=== PATIENT | male | born 1975 | race Caucasian/White ===

== ENCOUNTER 2024-08-11 07:17 | Observation (INO) | payer SELFPAY ==
[2024-08-11] MEDS ORDERED: Naloxone HCl 0.4 mg/ml Vial ONE (10:48)
[2024-08-11 11:01] LABS: #Basophils 0.05 10x3/uL (0.0-0.2); #Eosinphils 0.12 10x3/uL (0.0-0.5); #Monocytes 0.56 10x3/uL (0.0-1.1); #Neutrophils 4.93 10x3/uL (1.5-8.4); %Basophils 0.7 % (0.0-2.0); %Eosinophils 1.6 % (0.0-6.0); %Lymphocytes 25.8 % (18.0-47.0); %Monocytes 7.3 % (0.0-10.0); %Neutrophils 64.5 % (40.0-75.0); Hematocrit 43.7 % (38.8-50.0); Hemoglobin 14.3 g/dL (13.5-17.5); Mean Corpuscular HGB CONC 32.7 g/dL (32.0-36.0); Mean Corpuscular Hemoglobin 27.8 pg (27.0-33.0); Mean Platelet Volume 10.9 fL (7.4-10.4); Platelet Count 194 10x3/uL (150-450); RBC Distribution Width 14.1 % (11.5-14.5); Red Blood Cell (RBC) Count 5.14 10x6/uL (4.32-5.72); White Blood Cell (WBC) Count 7.6 10x3/uL (3.5-10.5)
[2024-08-11 11:19] LABS: Anion Gap 12 mmol/L (10-20); BUN (Urea Nitrogen) 12 mg/dL (8.4-25.7); Calc. Creatinine Clearance 0 mL/min (70-130); Calcium 9.1 mg/dL (7.8-10.44); Carbon Dioxide 26 mmol/L (22-29); Chloride 109 mmol/L (98-107); Estimated GFR 98; Glucose 98 mg/dL (70-105); Potassium 4.2 mmol/L (3.5-5.1); Sodium 143 mmol/L (136-145)
[2024-08-11 11:20] LABS: PTT 23.9 sec (22.0-33.0); Prothrombin Time 10.6 sec (9.5-12.1)
== END 2024-08-11 13:13 | disposition left against medical advice (07) ==
LOC: CSHERS 07:17 → CSHERHOLD 12:23
PROVIDERS: ADMIT Internal Medicine; ATTEND Internal Medicine
DX: Z53.21 Procedure and treatment not carried out due to patient leaving prior to being seen by health care provider (principal); R41.82 Altered mental status, unspecified
CPT/HCPCS: 36415; 70450; 85610; 85730; 96374; J2310